=== PATIENT | female | born 1990 | race Caucasian/White ===

== ENCOUNTER 2017-03-16 14:22 | Emergency (ER) | payer SELFPAY | END 2017-03-16 20:43 | disposition home or self-care (01) | LOC: SED 14:22 | DX: T40.1X1A Poisoning by heroin, accidental (unintentional), initial encounter (principal); T42.4X1A Poisoning by benzodiazepines, accidental (unintentional), initial encounter; F17.210 Nicotine dependence, cigarettes, uncomplicated | CPT/HCPCS: 36415; 82947; 99284; G0480 ==